=== PATIENT | female | born 1960 | race Caucasian/White ===

== ENCOUNTER → 2021-04-09 11:12 | Outpatient (CLI) | payer OTHER, SELFPAY ==
--- NOTE | 2021-04-09 | DI.MG.S_ITS ---
BILATERAL DIGITAL SCREENING MAMMOGRAM 3D/2D WITH CAD: 04/09/2021 CLINICAL: Routine screening. Comparison is made to exams dated: 09/07/2019 mammogram, 08/04/2018 mammogram, and 06/22/2017 mammogram - [facility]. The tissue of both breasts is extremely dense, which lowers the sensitivity of mammography. Current study was also evaluated with a Computer Aided Detection (CAD) system. There are benign calcifications in both breasts. No significant masses, calcifications, or other findings are seen in either breast. There has been no significant interval change. IMPRESSION: BENIGN There is no mammographic evidence of malignancy. A 1 year screening mammogram is recommended. This exam was interpreted at Station ID: [id number]. NOTE: For mammograms, a report in lay terms will be sent to the patient. Approximately 15% of breast malignancies will not be visualized mammographically. In the management of a palpable breast mass, a negative mammogram must not discourage biopsy of a clinically suspicious lesion. Electronically Signed By: Cordell mukherjee/nighat:04/09/2021 11:32:48 letter sent: Normal Exam ACR BI-RADS Category 2: Benign Finding(s) 3342F
== END ==
PROVIDERS: PCP Family Medicine; Referring Provider Family Medicine; Visit Provider Family Medicine
DX: Z12.31 Encounter for screening mammogram for malignant neoplasm of breast (principal)
CPT/HCPCS: 77063; 77067

== ENCOUNTER → 2021-10-29 09:33 | Outpatient (CLI) | payer OTHER, SELFPAY ==
[2021-10-29 10:42] LABS: Add Manual Diff / Slide Review NO; Basophils Absolute Auto 0 /uL (0-100); Basophils Percent Auto 0.7 % (0-2); Eosinophils Absolute Auto 100 /uL (0-450); Hematocrit 42.3 % (36-46); Hemoglobin 14.5 g/dL (12.0-16.0); Lymphocytes Absolute Auto 1900 /uL (1100-4500); Lymphocytes Percent Auto 39.2 % (25-40); Mean Corpuscular HGB Conc 34.3 % (30-36); Mean Corpuscular Volume 87.5 fL (80-100); Monocytes Absolute Auto 500 /uL (0-900); Monocytes Percent Auto 9.5 % (3-14); Neutrophils Absolute Auto 2400 /uL (1500-7000); Neutrophils Percent Auto 47.6 % (50-75); Platelet Count 247 X10^3/uL (150-400); Red Blood Cell Count 4.83 X10^6/uL (4.0-5.2); Red Cell Distribution Width 12.6 % (11.6-14.8); White Blood Cell Count 4.9 X10^3/uL (4.5-11.0)
[2021-10-29 10:52] LABS: Alanine Aminotransferase 58 IU/L (<35); Albumin 4.3 g/dL (3.5-5.0); Albumin Globulin Ratio 1.2 (1.0-2.8); Alkaline Phosphatase 67 U/L (38-126); Aspartate Aminotransferase 51 IU/L (14-36); BUN Creatinine Ratio 21.3 (6-22); Bilirubin Total 0.6 mg/dL (0.2-1.3); Blood Urea Nitrogen 19 mg/dL (7-17); Calcium 9.5 mg/dL (8.4-10.2); Carbon Dioxide 29 mmol/L (22-32); Chloride 103 mmol/L (98-107); Cholesterol 223 mg/dL (140-199); Estimated Glomerular Filt Rate > 60.0 mL/min (>60); Globulin 3.5 g/dL (1.7-4.1); Glucose 94 mg/dL (80-110); HDL Cholesterol 63 mg/dL (40-60); HEMOLYSIS 17 (0-50); LDL Cholesterol Calculated 126 mg/dL (<100); Potassium 4.4 mmol/L (3.4-5.1); Sodium 139 mmol/L (137-145); Total Protein 7.8 g/dL (6.3-8.2); Triglycerides 169 mg/dL (35-150)
[2021-10-29 11:18] LABS: Free T3, Triiodothyronine Free 3.65 pg/mL (2.77-5.27); Free T4, Direct Thyroxine 1.24 ng/dL (0.78-2.19)
[2021-10-29 11:32] LABS: Thyroid Stimulating Hormone 1.85 uIU/mL (0.47-4.68)
== END ==
PROVIDERS: PCP Family Medicine; Referring Provider Family Medicine; Visit Provider Family Medicine
DX: E03.9 Hypothyroidism, unspecified (principal); I10 Essential (primary) hypertension; E78.5 Hyperlipidemia, unspecified
CPT/HCPCS: 36415; 80053; 80061; 84439; 84443; 84481; 85025

== ENCOUNTER → 2022-02-24 09:52 | Outpatient (CLI) | payer OTHER, SELFPAY ==
[2022-02-24 11:22] LABS: Alanine Aminotransferase 59 IU/L (<35); Albumin 4.4 g/dL (3.5-5.0); Albumin Globulin Ratio 1.4 (1.0-2.8); Alkaline Phosphatase 68 U/L (38-126); Aspartate Aminotransferase 49 IU/L (14-36); BUN Creatinine Ratio 22.1 (6-22); Bilirubin Total 0.6 mg/dL (0.2-1.3); Blood Urea Nitrogen 19 mg/dL (7-17); Calcium 9.6 mg/dL (8.4-10.2); Carbon Dioxide 24 mmol/L (22-32); Chloride 106 mmol/L (98-107); Cholesterol 188 mg/dL (140-199); Estimated Glomerular Filt Rate > 60.0 mL/min (>60); Globulin 3.1 g/dL (1.7-4.1); Glucose 104 mg/dL (80-110); HDL Cholesterol 66 mg/dL (40-60); HEMOLYSIS < 15 (0-50); LDL Cholesterol Calculated 101 mg/dL (<100); Potassium 4.7 mmol/L (3.4-5.1); Sodium 138 mmol/L (137-145); Total Protein 7.5 g/dL (6.3-8.2); Triglycerides 104 mg/dL (35-150)
[2022-02-25 07:19] LABS: Apolipoprotein B 92 mg/dL (<90)
== END ==
PROVIDERS: PCP Family Medicine; Referring Provider Family Medicine; Visit Provider Family Medicine
DX: E78.2 Mixed hyperlipidemia (principal)
CPT/HCPCS: 36415; 80053; 80061; 82172

== ENCOUNTER → 2023-03-17 11:00 | Outpatient (CLI) | payer OTHER, SELFPAY ==
--- NOTE | 2023-03-17 | DI.MG.S_ITS ---
BILATERAL DIGITAL SCREENING MAMMOGRAM 3D/2D WITH CAD: 03/17/2023 CLINICAL: Routine screening. Comparison is made to exams dated: 04/09/2021 mammogram - [facility], 09/07/2019 mammogram, and 08/04/2018 mammogram - [facility]. Both breasts are extremely dense, which lowers the sensitivity of mammography (category d />75% glandular tissue). Current study was also evaluated with a Computer Aided Detection (CAD) system. There is an oval focal asymmetry with an obscured margin in the right breast at 11 o'clock posterior depth. This is more prominent. No other significant masses, calcifications, or other findings are seen in either breast. IMPRESSION: INCOMPLETE: NEEDS ADDITIONAL IMAGING EVALUATION The oval focal asymmetry in the right breast is indeterminate. Additional views with possible ultrasound are recommended. Based on the Tyrer Cuzick model (a risk assessment model) the patient's lifetime risk is 16.2% and her 10 year risk is 7.4%. According to the ACR, ACS, and NCCN guidelines, an annual breast MRI exam along with mammogram is recommended if the patient's lifetime risk is 20% or greater. This exam was interpreted at Station ID: [id number]. NOTE: For mammograms, a report in lay terms will be sent to the patient. Approximately 15% of breast malignancies will not be visualized mammographically. In the management of a palpable breast mass, a negative mammogram must not discourage biopsy of a clinically suspicious lesion. Electronically Signed By: Roby Quiros M.D. [facility] [place]/:03/17/2023 14:16:59 letter sent: Additional Imaging Needed ACR BI-RADS Category 0: Incomplete 3340F
== END ==
PROVIDERS: PCP Family Medicine; Referring Provider Family Medicine; Visit Provider Family Medicine
DX: Z12.31 Encounter for screening mammogram for malignant neoplasm of breast (principal)
CPT/HCPCS: 77063; 77067

== ENCOUNTER → 2023-04-01 09:32 | Outpatient (CLI) | payer OTHER, SELFPAY ==
--- NOTE | 2023-04-01 | DI.US.S_ITS ---
LIMITED ULTRASOUND OF RIGHT BREAST: 04/01/2023 CLINICAL: ABNORMAL MAMMOGRAM, ADD VIEWS RIGHT BREAST. Comparison is made to exams dated: 04/01/2023 mammogram, 03/17/2023 mammogram, and 04/09/2021 mammogram - [facility]. Color flow and real-time ultrasound of the right breast were performed. Swann scale images of the real-time examination were reviewed. There is a 1.2 cm x 1.3 cm x 1.3 cm oval possible complicated cyst vs. solid mass with an indistinct margin in the right breast at 10 o'clock posterior depth 6 cm from the nipple. There is posterior acoustic enhancement. IMPRESSION: SUSPICIOUS OF MALIGNANCY There is a 1.2 cm x 1.3 cm x 1.3 cm oval possible complicated cyst vs. solid mass with an indistinct margin in the right breast at 10 o'clock posterior depth 6 cm from the nipple. On mammogram, this is more prominent than imaging prior to 2022. On mammogram, a clip is noted, but is not in the same area as this finding. Ultrasound guided biopsy is recommended. If found to be mostly fluid during procedure, consider aspiration. If found to be solid during procedure, please survey axillary lymph nodes. This exam was interpreted at Station ID: [id number]. Electronically Signed By: Bruce Street M.D. lc/:04/01/2023 11:11:18 letter sent: Biopsy Required Ultrasound BI-RADS: 4a Low suspicion for malignancy
--- NOTE | 2023-04-01 | DI.MG.S_ITS ---
UNILATERAL RIGHT DIGITAL DIAGNOSTIC MAMMOGRAM 3D/2D WITH ADDITIONAL VIEWS: 04/01/2023 CLINICAL: Additional evaluation requested from prior study. Comparison is made to exams dated: 03/17/2023 mammogram, 04/09/2021 mammogram - [facility], and 09/07/2019 mammogram - [facility]. The right breast is extremely dense, which lowers the sensitivity of mammography (category d />75% glandular tissue). There is a 1.5 cm oval mass with an obscured margin in the right breast at 11 o'clock posterior depth. This is seen in additional views. This is more prominent than imaging prior to 2022. No other significant masses or calcifications are seen in the breast. IMPRESSION: INCOMPLETE: NEEDS ADDITIONAL IMAGING EVALUATION The 1.5 cm oval mass in the right breast is indeterminate. An ultrasound is recommended. Based on the Tyrer Cuzick model (a risk assessment model) the patient's lifetime risk is 16.2% and her 10 year risk is 7.4%. According to the ACR, ACS, and NCCN guidelines, an annual breast MRI exam along with mammogram is recommended if the patient's lifetime risk is 20% or greater. This exam was interpreted at Station ID: [id number]. NOTE: For mammograms, a report in lay terms will be sent to the patient. Approximately 15% of breast malignancies will not be visualized mammographically. In the management of a palpable breast mass, a negative mammogram must not discourage biopsy of a clinically suspicious lesion. Electronically Signed By: Bruce Street M.D. lc/:04/01/2023 11:06:30 ACR BI-RADS Category 0: Incomplete 3340F
== END ==
PROVIDERS: PCP Family Medicine; Referring Provider Family Medicine; Visit Provider Family Medicine
DX: R92.8 Other abnormal and inconclusive findings on diagnostic imaging of breast (principal); N63.11 Unspecified lump in the right breast, upper outer quadrant
CPT/HCPCS: 76642; 77065; G0279

== ENCOUNTER → 2023-04-18 12:46 | Outpatient (CLI) | payer OTHER, SELFPAY ==
--- NOTE | 2023-04-18 | PATH_ITS ---
[facility] Accession Number: [id number] No. of containers..01 Tissue . 01 Material submitted: . breast - RIGHT BREAST MASS 10:00 6 CMFN . 01 Diagnosis: Right Breast, 10 o'clock, 6 cm From Nipple, Image-Guided Core Biopsy: Invasive ductal carcinoma, with mucinous component, intermediate grade. - Letitia score is 6 out of 9 possible (histologic=3, nuclear=2, mitotic index=1). 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 - Lymphovascular invasion: Not identified. - Greatest linear extent of invasive carcinoma: 0.6 cm as measured from the glass slide. - Calcifications: Present. - Predictive markers: Estrogen and progesterone receptors positive and HER2 negative for overexpression by immunohistochemistry (see comment for additional parameters). [facility] 04/21/2023 [facility]2 Local . 01 Comment: Predictive marker immunohistochemical studies are performed on block A1 with the invasive carcinoma showing the following results: . Estrogen receptor (SP1): Positive (100%, strong intensity). Progesterone receptor (1E2): Positive (80%, intermediate intensity). Her2 (4B5): Negative for overexpression (1+). . Internal controls for ER and VA are positive. Cold ischemic time is <5 minutes. The scoring criteria for breast biomarkers by immunohistochemistry is based on the ASCO/CAP guidelines (Pat AC et al, J Clin Oncol: 2018 Jun 06;36(20):6169-7758 and Mihai BARRY et al, Arch Pathol Lab Med: 2009;134(6):907-22). Deparaffinized sections of formalin fixed tissue (along with appropriate positive controls) are incubated with the above antibody(s). Using the automated [place] stainer, tissue is incubated with the designated antibody which is then localized by a non-biotin, dual polymer detection system. The external controls are reviewed for appropriate reactivity and found to be adequate. Results on the target cell population are indicated above. These tests have not been validated on decalcified tissue. This test was developed and its performance characteristics determined by [facility]. It has not been cleared or approved by the U.S. Food and Drug Administration. The FDA has determined that such clearance or approval is not necessary. This test is used for clinical purposes. It should not be regarded as investigational or for research. . The results of this case are verbally provided by Dr. Baez to Dr. Brush on 04/20/2023 at 11:40 a.m. . 01 Electronically signed: . Alexandra Baez MD, Pathologist NPI- [id number] . 01 Gross description: . The specimen is received in formalin labeled with the patient's name, , and right breast 10 o'clock, 6 cm FN, and consists of multiple fragments of rachel to red-brown tissue aggregating to 2.6 x 1.2 x 0.1 cm. The specimen is filtered into a biopsy bag and submitted entirely in cassette A1. . The specimen was removed on 04/18/2023 at 1401; time in formalin not provided; cold ischemic time cannot be calculated; and total fixation time is approximately 28 hours. ([id number]) /MRV 04/19/2023 1355 Local . 01 Pathologist provided ICD-10: C50.911 . 01 CPT . 111006, 493393, [id number], [id number] Specimen Comment: A courtesy copy of this report has been sent to [facility] Performed at: 01 [facility] [address] [place] [address] [address] [facility], [place], [place] [id number] MD Cordell Fishman MD Phone: [phone]
--- NOTE | 2023-04-18 | DI.MG.S_ITS ---
UNILATERAL RIGHT DIGITAL DIAGNOSTIC MAMMOGRAM 3D/2D POST-EXCISIONAL BIOPSY: 04/18/2023 CLINICAL: Right breast lump. Post clip placement. Comparison is made to exams dated: 04/18/2023 ultrasound biopsy, 04/01/2023 ultrasound, 04/01/2023 mammogram, 03/17/2023 mammogram, and 04/09/2021 mammogram - [facility]. The right breast is extremely dense, which lowers the sensitivity of mammography (category d />75% glandular tissue). There is a marker clip in the appropriate position in the right breast at 10 o'clock posterior depth. This marker clip placement is at the biopsy site. IMPRESSION: POST PROCEDURE MAMMOGRAM FOR MARKER PLACEMENT There was a successful marker clip placement in the right breast posterior depth. Based on the Tyrer Cuzick model (a risk assessment model) the patient's lifetime risk is 16.2% and her 10 year risk is 7.4%. According to the ACR, ACS, and NCCN guidelines, an annual breast MRI exam along with mammogram is recommended if the patient's lifetime risk is 20% or greater. This exam was interpreted at Station ID: [id number]. NOTE: For mammograms, a report in lay terms will be sent to the patient. Approximately 15% of breast malignancies will not be visualized mammographically. In the management of a palpable breast mass, a negative mammogram must not discourage biopsy of a clinically suspicious lesion. Electronically Signed By: Josse jernigan/nighat:04/18/2023 20:38:09 ACR BI-RADS Category Post-procedure mammogram for marker placement
--- NOTE | 2023-04-18 | DI.US.S_ITS ---
ULTRASOUND GUIDED BIOPSY RIGHT BREAST USING VACUUM DEVICE WITH MARKING DEVICE INSERTED AND POST DIGITAL MAMMOGRAPHIC AND ULTRASOUND IMAGIN04/18/2023 CLINICAL: Right breast mass. PATIENT CONSENT: Risks (minor bleeding, infection, vasovagal reaction and repeat procedure), benefits and alternatives were explained to the patient and written informed consent was obtained. Correlation is made to exams dated: 04/18/2023 mammogram, 04/01/2023 ultrasound, 04/01/2023 mammogram, 03/17/2023 mammogram, and 04/09/2021 mammogram - [facility]. An ultrasound guided biopsy using real-time ultrasound was performed for the 1.7 cm x 1.3 cm x 1.1 cm mass located in the right breast at 10 o'clock posterior depth 6 cm from the nipple. This was described on the previous mammography and ultrasound reports. The skin was prepped in the usual manner. Local anesthetic was administered to the access site. A skin kwasi was made in the breast. The abnormality was approached from the lateral aspect. A 13 gauge biopsy needle was placed adjacent to the abnormality under ultrasound guidance. Once the needle was documented to be in the correct location, five specimens were obtained using the Mammotome biopsy system. A clip was inserted into the biopsy cavity. A sterile dressing was applied to the access site. Post procedure digital mammographic and ultrasound imaging demonstrates the location device at the targeted area. The specimens were sent to the laboratory for pathological analysis. No significant right axillary lymphadenopathy. IMPRESSION: ULTRASOUND GUIDED BIOPSY MALIGNANT Ultrasound guided biopsy of the 1.7 cm x 1.3 cm x 1.1 cm mass in the right breast at 10 o'clock posterior depth 6 cm from the nipple was successful with no apparent post procedure complications. Pathology indicates malignant invasive ductal carcinoma (ID). Pathology notes mucinous component and rare foci of DCIS. Pathology results are concordant with imaging findings. Surgical/oncologic consultation recommended This exam was interpreted at Station ID: [id number]. ankur Charles M.D., M.D./:04/22/2023 12:15:11
== END ==
PROVIDERS: PCP Family Medicine; Referring Provider Family Medicine; Visit Provider Family Medicine
DX: C50.411 Malignant neoplasm of upper-outer quadrant of right female breast (principal)
CPT/HCPCS: 19083; 77065